=== PATIENT | female | born 2000 | race African-American/Black ===

== ENCOUNTER 2020-04-29 22:44 | Emergency (ER) | payer MEDICAID ==
[~2020-04-29] VITALS: Ht 167.6 cm; Wt 94.0 kg
[2020-04-30] MEDS ORDERED: ACETAMINOPHEN 325MG TABLET PO ONE
[2020-04-30 00:33] LABS: CLARITY URINE CLEAR (CLEAR); COLOR URINE YELLOW (YELLOW); KETONES URINE TRACE (NEGATIVE); LEUKOCYTE ESTERASE URINE NEGATIVE (NEGATIVE); NITRITE URINE NEGATIVE (NEGATIVE); OCCULT BLOOD URINE NEGATIVE (NEGATIVE); PH URINE 5.5 (4.5-8.0); PROTEIN URINE NEGATIVE (NEGATIVE); SPECIFIC GRAVITY URINE 1.019 (1.005-1.030); UROBILINOGEN URINE 0.2 E.U./dL (0.2-1.0)
[2020-04-30 01:04] VITALS: BP 120/77
== END 2020-04-30 01:50 | disposition home or self-care (01) ==
LOC: ER 22:44
DX: N83.202 Unspecified ovarian cyst, left side (principal); E28.2 Polycystic ovarian syndrome; J45.909 Unspecified asthma, uncomplicated
CPT/HCPCS: 76830; 76856; 81003; 99284

== ENCOUNTER 2021-12-14 17:12 | Emergency (ER) | payer MEDICAID, OTHER ==
[~2021-12-14] VITALS: Ht 167.6 cm; Wt 88.0 kg
[2021-12-14 17:20] VITALS: BP 123/73
== END 2021-12-14 22:41 | disposition left against medical advice (07) ==
LOC: ER 17:12
DX: Z53.21 Procedure and treatment not carried out due to patient leaving prior to being seen by health care provider (principal)

== ENCOUNTER 2022-02-25 01:52 | Emergency (ER) | payer MEDICAID, OTHER ==
[~2022-02-25] VITALS: Ht 177.8 cm; Wt 95.0 kg
[2022-02-25 02:40] VITALS: BP 136/65
[2022-02-25 04:23] LABS: BASOPHILS % 0.8 % (0.0-2.0); EOSINOPHILS % 4.2 % (0.0-5.0); HEMATOCRIT. 37.7 % (36.0-48.0); HEMOGLOBIN. 12.6 g/dL (12.0-16.0); LYMPHOCYTES % 39.8 % (20.0-50.0); MEAN CORPUSCULAR VOLUME 86.5 fL (81.0-99.0); MONOCYTES % 7.6 % (2.0-8.0); NEUTROPHILS % 47.6 % (40.0-76.0); PLATELET 661 x1000/uL (130-400); RED BLOOD CELL COUNT 4.36 mill/uL (4.2-5.4); RED CELL DISTRIBUTION WIDTH 15.1 % (11.6-14.6)
[2022-02-25 04:49] LABS: CHLORIDE 108 mEq/L (98-107)
[2022-02-25 04:56] LABS: ETHANOL BLOOD < 10 mg/dL
== END 2022-02-25 06:21 | disposition home or self-care (01) ==
LOC: ER 02:03
DX: F12.10 Cannabis abuse, uncomplicated (principal); R00.2 Palpitations; R00.0 Tachycardia, unspecified; J45.909 Unspecified asthma, uncomplicated
CPT/HCPCS: 36415; 71045; 80053; 80320; 85025; 93005; 99285; G0480

== ENCOUNTER 2022-03-09 12:09 | Emergency (ER) | payer MEDICAID ==
[~2022-03-09] VITALS: Ht 172.7 cm; Wt 75.0 kg
[2022-03-09 12:29] VITALS: BP 142/94
[2022-03-09] MEDS ORDERED: AMOX1TAB16 MT (18:15)
[2022-03-09] MEDS ORDERED: P50 MT (18:15)
== END 2022-03-09 19:08 | disposition home or self-care (01) ==
LOC: ER 12:09
DX: H92.01 Otalgia, right ear (principal); J02.9 Acute pharyngitis, unspecified; J45.909 Unspecified asthma, uncomplicated; F12.10 Cannabis abuse, uncomplicated
CPT/HCPCS: 81025; 99283

== ENCOUNTER 2022-05-17 00:16 | Emergency (ER) | payer MEDICAID ==
[~2022-05-17] VITALS: Ht 167.6 cm; Wt 96.0 kg
[~2022-05-17 00:16] MED LIST: AMOX1TAB16 MT; P50 MT
[2022-05-17 00:48] VITALS: BP 137/65
[2022-05-17 01:23] LABS: CLARITY URINE TURBID (CLEAR); COLOR URINE RED (YELLOW); KETONES URINE NEGATIVE (NEGATIVE); LEUKOCYTE ESTERASE URINE 2+ (NEGATIVE); NITRITE URINE POSITIVE (NEGATIVE); OCCULT BLOOD URINE 3+ (NEGATIVE); PROTEIN URINE 2+ (NEGATIVE); SPECIFIC GRAVITY URINE 1.025 (1.005-1.030); UROBILINOGEN URINE 0.2 E.U./dL (0.2-1.0)
[2022-05-17] MEDS ORDERED: IBUP-2029 MT (01:45)
[2022-05-17] MEDS ORDERED: CEPH500C2 MT (01:45)
== END 2022-05-17 02:00 | disposition home or self-care (01) ==
LOC: ER 00:16
DX: N39.0 Urinary tract infection, site not specified (principal)
CPT/HCPCS: 81003; 99283